=== PATIENT | female | born 1995 | race Caucasian/White ===

== ENCOUNTER 2019-09-01 12:55 | Emergency (ER) | payer OTHER ==
[~2019-09-01] VITALS: Ht 170.2 cm; Wt 56.7 kg
[2019-09-01] MEDS ORDERED: CYMBALTA60 MG PO (13:05)
[2019-09-01 15:06] VITALS: BP 128/90
== END 2019-09-01 15:06 | disposition home or self-care (01) ==
LOC: ER 12:55
DX: S61.011A Laceration without foreign body of right thumb without damage to nail, initial encounter (principal); F32.9 Major depressive disorder, single episode, unspecified; F41.9 Anxiety disorder, unspecified; X58.XXXA Exposure to other specified factors, initial encounter; Y93.89 Activity, other specified; Y92.89 Other specified places as the place of occurrence of the external cause; Y99.8 Other external cause status